=== PATIENT | male | born 1960 | race African-American/Black ===

== ENCOUNTER 2023-11-17 08:41 | Inpatient (IN) | payer OTHER, MEDICARE ==
[~2023-11-17] VITALS: Ht 175.3 cm; Wt 79.4 kg
[2023-11-17 09:30] VITALS: PULSE 98; RESP 24; O2SAT 99
[2023-11-17 09:32] LABS: BASOPHILS % 1.1 % (0.0-2.0); EOSINOPHILS % 1.4 % (0.0-5.0); HEMATOCRIT. 34.9 % (42.0-52.0); HEMOGLOBIN. 10.6 g/dL (14.0-18.0); LYMPHOCYTES % 24.3 % (20.0-50.0); MEAN CORPUSCULAR HEMOGLOBIN 23.5 pg (28.0-32.0); MEAN CORPUSCULAR HGB CONC 30.2 g/dL (31.0-37.0); MEAN CORPUSCULAR VOLUME 77.8 fL (80.0-94.0); MEAN PLATELET VOLUME 8.4 fl (7.4-10.4); MONOCYTES % 10.8 % (2.0-8.0); NEUTROPHILS % 62.4 % (40.0-76.0); PLATELET 283 x1000/uL (130-400); RED BLOOD CELL COUNT 4.49 mill/uL (4.7-6.1); RED CELL DISTRIBUTION WIDTH 26.9 % (11.6-14.6); WHITE BLOOD COUNT 5.2 x1000/uL (4.5-11.0)
[2023-11-17 09:37] LABS: ADD RBC MORPHOLOGY YES; DIFFERENTIAL COMMENT 1
[2023-11-17 09:43] LABS: INR 1.2; PARTIAL THROMBOPLASTIN TIME 28.1 sec (23.4-31.0); PROTHROMBIN TIME 12.6 sec (9.6-11.0)
[2023-11-17] MEDS: FUROSEMIDE 40MG/4ML VIAL IV ONE (09:49)
[2023-11-17] MEDS: METHYLPREDNISOLONE SOD SUCC 125MG/2ML (ACT-O-VIAL) IV STA (09:49)
[2023-11-17 09:56] LABS: ALANINE AMINOTRANSFERASE 30 IU/L (10-49); ALBUMIN 3.7 g/dL (3.2-4.8); ASPARTATE AMINOTRANSFERASE 33 IU/L (<34); BILIRUBIN TOTAL 0.7 mg/dL (0.1-1.0); CALCIUM 9.3 mg/dL (8.7-10.4); CARBON DIOXIDE 27 mEq/L (21-32); CHLORIDE 104 mEq/L (98-107); GLUCOSE 122 mg/dL (70-105); POTASSIUM 3.8 mEq/L (3.5-5.1); PROTEIN TOTAL 6.9 g/dL (6.0-8.3); SODIUM 141 mEq/L (136-145); UREA NITROGEN BLOOD 31 mg/dL (9-23)
[2023-11-17 10:03] LABS: CREATININE 1.5 mg/dL (0.6-1.3)
[2023-11-17 10:05] LABS: TROPONIN I HIGH SENSITIVITY 56 ng/L (3.0-53)
[2023-11-17] MEDS ORDERED: TRAMADOL 50MG TABLET PO PRN (10:30)
[2023-11-17] MEDS: FUROSEMIDE 40MG/4ML VIAL IV SCH (10:30)
[2023-11-17] MEDS ORDERED: ONDANSETRON HCL 4MG/2ML INJ IV PRN (10:30)
[2023-11-17] MEDS ORDERED: DOCUSATE SODIUM 100MG CAPSULE PO PRN (10:30)
[2023-11-17 10:50] VITALS: RESP 20
[2023-11-17] MEDS: ALBUTEROL (0.083%) 2.5MG/3ML NEB HHN STA (10:50)
[2023-11-17] MEDS: IPRATROPIUM BROMIDE (0.02%) 0.5MG/2.5ML NEB HHN STA (10:50)
[2023-11-17 12:00] VITALS: BP 171/120; PULSE 94; RESP 18; TEMP 97.6
[2023-11-17] MEDS ORDERED: FURO40TA5 PO (12:27)
[2023-11-17] MEDS ORDERED: SACU1TAB4 MT (12:28)
[2023-11-17] MEDS ORDERED: CALC-586 MT (12:30)
[2023-11-17] MEDS ORDERED: ATOR-2 PO (12:31)
[2023-11-17] MEDS ORDERED: UREA227C4 TP (12:32)
[2023-11-17] MEDS ORDERED: EMPA10TA MT (12:34)
[2023-11-17] MEDS ORDERED: CARV25TA47 MT (12:35)
[2023-11-17] MEDS ORDERED: OMEP20CA14 MT (12:38)
[2023-11-17] MEDS ORDERED: CLOT10SO7 TP (12:40)
[2023-11-17] MEDS ORDERED: TAMS-11 PO (12:42)
[2023-11-17] MEDS ORDERED: *PATIENT'S OWN MEDICATION STORAGE XX SCH (13:30)
[2023-11-17] MEDS: LOSARTAN 25 MG TABLET PO SCH (13:34)
[2023-11-17] MEDS: GUAIFENESIN 200MG/10ML SUGAR FREE UDC PO PRN (13:34)
[2023-11-17] MEDS: METOPROLOL TARTRATE 25MG TABLET PO SCH (13:34)
[2023-11-17] MEDS: AMLODIPINE 5MG TABLET PO NR (13:34)
[2023-11-17] MEDS: ENOXAPARIN 40MG/0.4ML SYR SUBCUT SCH (13:35)
[2023-11-17 14:31] LABS: ANISOCYTOSIS 4+; HYPOCHROMASIA 1+; MICROCYTOSIS 1+; PLATELET ESTIMATE NORMAL
[2023-11-17 16:00] VITALS: BP_SYST 166; BP_SYST 172; BP_DIAS 122; BP_DIAS 88; PULSE 86; PULSE 99; RESP 20; TEMP 98.3; TEMP 98.4
[2023-11-17 16:48] VITALS: BP 175/100; PULSE 88; RESP 20; TEMP 98.3
[2023-11-17] MEDS: CLONIDINE 0.1MG TABLET PO PRN (17:27)
[2023-11-17 17:43] LABS: AMMONIA 32 uMol/L (<32)
[2023-11-17 18:02] LABS: ACETAMINOPHEN < 2 ug/mL (10-30); T4 FREE 1.28 ng/dL (0.89-1.76); THYROID STIMULATING HORMONE 0.88 uIU/mL (0.55-4.78); TROPONIN I HIGH SENSITIVITY 53 ng/L (3.0-53)
[2023-11-17 18:09] LABS: ETHANOL BLOOD < 10 mg/dL (<10)
[2023-11-17] MEDS: OMEPRAZOLE 20MG CAPSULE EXTENDED RELEASE PO SCH (18:43)
[2023-11-17 20:00] VITALS: BP 120/89; PULSE 87; RESP 20; TEMP 99.1
[2023-11-17] MEDS: ATORVASTATIN CALCIUM 40MG TABLET PO SCH (21:35)
[2023-11-17] MEDS: TAMSULOSIN HCL 0.4MG SR CAPSULE PO SCH (21:36)
[2023-11-17] MEDS: CARVEDILOL 12.5MG TABLET PO SCH (21:36)
[2023-11-17 22:54] LABS: CLARITY URINE CLEAR (CLEAR); COLOR URINE YELLOW (YELLOW); GLUCOSE URINE 3+ (NEGATIVE); KETONES URINE TRACE (NEGATIVE); LEUKOCYTE ESTERASE URINE NEGATIVE (NEGATIVE); NITRITE URINE NEGATIVE (NEGATIVE); OCCULT BLOOD URINE NEGATIVE (NEGATIVE); PH URINE 6.5 (4.5-8.0); PROTEIN URINE NEGATIVE (NEGATIVE); SPECIFIC GRAVITY URINE 1.015 (1.005-1.030)
[2023-11-17 23:06] LABS: BACTERIA URINE NONE SEEN; RBC URINE NONE SEEN /hpf (0-2); SQUAMOUS EPITHELIAL CELL URINE RARE /lpf (RARE/1+); WBC URINE NONE SEEN /hpf (0-2)
[2023-11-17 23:10] LABS: *AMPHETAMINES SCREEN URINE NEGATIVE (NEGATIVE); *BARBITURATES SCREEN URINE NEGATIVE (NEGATIVE); *BENZODIAZEPINES SCREEN URINE NEGATIVE (NEGATIVE); *COCAINE SCREEN URINE PRESUMPTIVE POSITIVE (NEGATIVE); CANNABINOID URINE SCREEN NEGATIVE (NEGATIVE); ECSTASY MDMA SCREEN URINE NEGATIVE (NEGATIVE); METHADONE URINE SCREEN Neg (NEGATIVE); OPIATES URINE SCREEN NEGATIVE (NEGATIVE); PHENCYCLIDINE URINE SCREEN NEGATIVE (NEGATIVE)
[2023-11-18] VITALS: BP 123/74; PULSE 83; RESP 20; TEMP 100.6
[2023-11-18] MEDS: ENOXAPARIN 80MG/0.8ML SYR SUBCUT SCH (00:03)
[2023-11-18] MEDS: ACETAMINOPHEN 325MG TABLET PO PRN (01:40)
[2023-11-18 04:00] VITALS: BP 129/77; PULSE 78; RESP 18; TEMP 98.9
[2023-11-18 08:00] VITALS: BP 133/88; PULSE 84; RESP 20; TEMP 98.3
[2023-11-18] MEDS: AMLODIPINE 10MG TABLET PO SCH (10:06)
[2023-11-18 11:19] LABS: BASOPHILS % 0.6 % (0.0-2.0); EOSINOPHILS % 0.2 % (0.0-5.0); HEMATOCRIT. 34.5 % (42.0-52.0); HEMOGLOBIN. 10.4 g/dL (14.0-18.0); LYMPHOCYTES % 15.5 % (20.0-50.0); MEAN CORPUSCULAR HEMOGLOBIN 23.5 pg (28.0-32.0); MEAN CORPUSCULAR VOLUME 78.6 fL (80.0-94.0); MEAN PLATELET VOLUME 9.1 fl (7.4-10.4); MONOCYTES % 11.5 % (2.0-8.0); NEUTROPHILS % 72.2 % (40.0-76.0); PLATELET 254 x1000/uL (130-400); WHITE BLOOD COUNT 6.3 x1000/uL (4.5-11.0)
[2023-11-18 11:21] LABS: DIFFERENTIAL COMMENT 1
[2023-11-18 11:22] LABS: ADD RBC MORPHOLOGY NO
[2023-11-18 11:34] LABS: ALANINE AMINOTRANSFERASE 24 IU/L (10-49); ALBUMIN 3.4 g/dL (3.2-4.8); ASPARTATE AMINOTRANSFERASE 20 IU/L (<34); BILIRUBIN TOTAL 0.7 mg/dL (0.1-1.0); CALCIUM 8.9 mg/dL (8.7-10.4); CARBON DIOXIDE 31 mEq/L (21-32); CHLORIDE 104 mEq/L (98-107); CHOLESTEROL 110 mg/dL (<200); CREATININE 1.4 mg/dL (0.6-1.3); GLUCOSE 248 mg/dL (70-105); HDL CHOLESTEROL 52 mg/dL (>55); LDL CHOLESTEROL 48 mg/dL (5-100); POTASSIUM 3.7 mEq/L (3.5-5.1); PROTEIN TOTAL 6.3 g/dL (6.0-8.3); SODIUM 142 mEq/L (136-145); TRIGLYCERIDE 78 mg/dL (0-150); UREA NITROGEN BLOOD 34 mg/dL (9-23)
[2023-11-18 12:00] VITALS: BP 129/89; PULSE 90; RESP 20; TEMP 98.2
[2023-11-18 16:00] VITALS: BP 132/88; PULSE 89; RESP 20; TEMP 98.1
[2023-11-18 20:00] VITALS: BP 117/70; PULSE 77; RESP 20; TEMP 98.6
[2023-11-18] MEDS ORDERED: NALOXONE HCL 0.4MG/ML VIAL IV PRN (22:30)
[2023-11-19] VITALS: BP 121/72; PULSE 80; RESP 20; TEMP 98.2
[2023-11-19 04:00] VITALS: BP 122/83; PULSE 75; RESP 19; TEMP 98.5
[2023-11-19 08:00] VITALS: BP 150/90; PULSE 80; RESP 18; TEMP 98.1
[2023-11-19] MEDS: FAMOTIDINE 20MG TABLET PO SCH (10:33)
[2023-11-19 12:00] VITALS: BP 140/91; PULSE 70; RESP 19; TEMP 97.4
[2023-11-19 16:00] VITALS: BP 122/79; PULSE 80; RESP 18; TEMP 99.5
[2023-11-19 20:00] VITALS: BP 137/99; PULSE 83; RESP 20; TEMP 98.6
[2023-11-20] VITALS: BP 119/76; PULSE 77; RESP 19; TEMP 98.5
[2023-11-20] MEDS: HYDROCODONE/ACETAMINOPHEN 5/325MG TABLET PO PRN (00:06)
[2023-11-20 04:20] VITALS: BP 115/76; PULSE 71; RESP 20; TEMP 98
[2023-11-20 08:00] VITALS: BP 145/107; PULSE 73; RESP 18; TEMP 97.8
[2023-11-20 12:16] VITALS: BP 138/94; PULSE 81; TEMP 98.1; O2SAT 100
[2023-11-20 12:34] VITALS: BP 138/94; PULSE 81; TEMP 98.1; O2SAT 100
== END 2023-11-20 13:00 | disposition home or self-care (01) | DRG 280 ==
LOC: ER 08:41 → EDBEDREQ 09:19 → 7WST 10:10 → EDBEDREQTM 10:16 → EDBEDREQ 10:16
PROVIDERS: ADMIT Hospitalist; ATTEND Hospitalist
DX: I11.0 Hypertensive heart disease with heart failure (principal); I50.23 Acute on chronic systolic (congestive) heart failure; I21.A1 Myocardial infarction type 2; N17.9 Acute kidney failure, unspecified; D50.9 Iron deficiency anemia, unspecified; Z20.822 Contact with and (suspected) exposure to COVID-19; F14.10 Cocaine abuse, uncomplicated; E78.00 Pure hypercholesterolemia, unspecified; R74.01 Elevation of levels of liver transaminase levels; I42.9 Cardiomyopathy, unspecified; I37.1 Nonrheumatic pulmonary valve insufficiency; Z79.899 Other long term (current) drug therapy; Z87.891 Personal history of nicotine dependence
CPT/HCPCS: 36415; 71045; 80053; 80061; 80305; 80307; 80320; 80329; 81003; 82140; 82962; 83036; 83605; 83880; 84145; 84153; 84439; 84443; 84484; 85025; 85379; 87426; 93005; 93306; 93970; 94640; 99285; J1650; J1940; J2930; G0480